=== PATIENT | male | born 1945 | race Caucasian/White ===

== ENCOUNTER 2024-09-09 00:59 | Emergency (ER) | payer MEDICARE, SELFPAY ==
[2024-09-09 01:00] VITALS: BP 121/81; BP 133/83; PULSE 80; PULSE 85; RESP 18; RESP 22; TEMP 38.2; TEMP 38.3; O2SAT 92; O2SAT 98; BMI 27.9
[2024-09-09 01:20] LABS: Microscopic, Urine URINE MICROSCOPIC (MICROSCOPIC)
--- NOTE | 2024-09-09 01:23 | ED_ITS ---
Discharge Plan Disposition Patient Disposition: Xfer Other Referrals Follow up/Referrals: Provider,Referral, [Primary Care Provider] - See instructions Clinical Impressions Clinical Impression: Acute UTI, Parkinson's disease, Pressure ulcer, Fecal impaction in rectum, Ureterolithiasis Sepsis Qualifiers: Sepsis acute organ dysfunction status: with acute organ dysfunction Severe sepsis acute organ dysfunction type: encephalopathy Severe sepsis shock status: without septic shock Coma Qualifiers: Coma depth: [place] coma 3-8 Coma timing: at arrival to emergency department Q ualified Code(s): R40.2432 - [place] coma scale score 3-8, at arrival to emergency department Stand Alone Forms Stand Alone Forms: Transfer Record - ED Print Language Print Language: Yoruba Discharge ED Provider: Henrry Kendrick General Adult HPI General Chief complaint: Weakness Stated complaint: Weakness Time Seen by Provider: 09/09/24 01:00 Mode of Arrival: EMS Source of Information: EMS Description of Symptoms (Recalled from ER Triage Doc. by RN): PT FAMILY CALLED FOR PT BEING UNRESPONSIVE. PT BEDBOUND, ABD DISTENTION NOTED WITH CONDOM CATH IN PLACE. PT RESPONSIVE TO PAIN HOWEVER DISORIENTED. HX OF PARKINSONS/PACEMAKER History of Present Illness HPI narrative: 79-year-old male with history of severe progressive Parkinson's presents for worsening mental status. He is bedbound at baseline. Over the last couple days he has become significantly less responsive. He already does not eat very well, but has not been eating hardly at all today. Family reports that usually he is able to have a full conversation, watch TV and interact. He has frequent urinary tract infections per family. He is DNR/DNI, not on hospice. Satting in the high 80s at home on room air per EMS, improved on 2 L. Patient is unable to provide any history, moans to painful stimuli. He has history of A-fib and is intermittently on Eliquis but not currently. Related Data Allergies Allergy/AdvReac Type Severity Reaction Status Date / Time No Known Allergies Allergy Verified 09/09/24 01:22 [facility] Disclaimer: The information contained in this section may have been updated after the patient was seen, as this information can be updated by other users. Medical History (Updated 09/09/24 @ 03:49 by Henrry Kendrick MD) Parkinsons disease Pacemaker Social History Smoking Status: Unknown if ever smoked alcohol intake: never current occupational status: retired Travel in the last 8 weeks: None ROS Obtained: Yes All systems reviewed & no additional complaints except as documented Physical Exam General General appearance: cachectic Comment: Moans to painful stimuli, localizes Head Head exam: atraumatic and normocephalic Eye Eye exam: Present normal appearance, PERRL and EOMI ENT ENT exam: Present normal oropharynx and normal external ear exam Neck Neck exam: Present normal inspection and full ROM Chest Chest inspection: Present normal inspection and symmetric chest wall rise; Absent tenderness Respiratory Respiratory exam: Present normal lung sounds bilaterally; Absent respiratory distress Cardiovascular Cardiovascular exam: Present regular rate and normal rhythm Abdominal Exam Abdominal exam: Present soft, distention (Suprapubic distention and tenderness) and tenderness; Absent guarding exam: Present other (Patient had a condom cath in place with a wrapping around the base of the penis patient has a small wound on the inferior aspect of the shaft of the penis at the base.) Extremities Exam Extremities exam: Present other (Pressure wounds noted); Absent edema or joint swelling Back Exam Back exam: Absent normal inspection (Significant sacral decubitus pressure wounds) or tenderness Neurological Exam Neurological exam: Present other (GCS of 8) Psychiatric Psychiatric exam: Absent normal affect Skin Skin exam: Present warm and dry Lymphatic Lymphatic Findings: no adenopathy Medical Decision Making Medical Records Medical records reviewed: Yes I reviewed the patient's medical records. Screening: Per USPSTF and CDC recommendations, given the prevalence of disease in our region, it is our hospital?s policy to screen for HIV and viral Hepatitis for all patients aged 18 and over and those with ongoing risk factors. Jj Inquiry Pt receiving controlled substance: No Jj was queried for this patient: No Vital Signs: 09/09/24 01:00 09/09/24 01:00 09/09/24 03:00 Temperature 100.9 F H 100.8 F H 100.0 F H Temperature Source Rectal Core Pulse Rate 80 67 Pulse Rate [Apical] 85 Respiratory Rate 18 22 17 Blood Pressure 121/81 119/70 Blood Pressure [Right Radial Artery] 133/83 Blood Pressure Mean [Right Radial Artery] 99 Blood Pressure Source Blood Pressure Position 02 Sat by Pulse Oximetry 98 92 L 98 Oxygen Delivery Method Nasal Cannula Nasal Cannula Nasal Cannula Oxygen Flow Rate (LPM) 2 2 09/09/24 03:30 09/09/24 05:03 Temperature 99.7 F H 99.7 F H Temperature Source Core Pulse Rate 87 89 Pulse Rate [Apical] Respiratory Rate 17 17 Blood Pressure 135/96 H 135/96 H Blood Pressure [Right Radial Artery] Blood Pressure Mean [Right Radial Artery] Blood Pressure Source Automatic Cuff Blood Pressure Position Supine 02 Sat by Pulse Oximetry 96 Oxygen Delivery Method Nasal Cannula Nasal Cannula Oxygen Flow Rate (LPM) 2 2 Lab Data Lab results reviewed: Yes I reviewed the patient's lab results. Lab Results 09/09/24 01:05: WBC 13.7 H, RBC 5.51, Hgb 16.1, Hct 50.2, MCV 91.1, MCH 29.2, MCHC 32.1, RDW 15.8, Plt Count 313, MPV 11.7 H, Neut % (Auto) 87.3 H, Lymph % (Auto) 5.4 L, Trinity % (Auto) 6.2, Eos % (Auto) 0.3, Baso % (Auto) 0.3, Neut # (Auto) 11.9 H, Lymph # (Auto) 0.7, Trinity # (Auto) 0.9, Eos # (Auto) 0.0, Baso # (Auto) 0.0, Sodium 141, Potassium 6.3 H*, Chloride 108 H, Carbon Dioxide 19 L, A nion Gap 20.3 H, BUN 55 H, Creatinine 1.60 H, Estimated Creat Clear 50, E stimated GFR 42 L, Est GFR ( Amer) 51 L, Glucose 176 H, Calcium 9.5, Phosphorus 4.0, Magnesium 2.5 H, Total Bilirubin 1.3, AST 74 H, ALT 26, Alkaline Phosphatase 153 H, Total Creatine Kinase 33 L, Total Protein 9.8 H, Albumin 4.2, Globulin 5.6 H, Albumin/Globulin Ratio 0.8 L, TSH 2.81, Thyroxine (T4) 9.6, Acetone Level None detected 09/09/24 01:06: VBG pH 7.40, VBG pCO2 34.0 L, VBG pO2 57.9 H, VBG HCO3 20.8 L, V BG Total CO2 21.8 L, VBG O2 Saturation 90.8 H, VBG Base Excess -4.0 L, VBG Lactic Acid 4.2 H 09/09/24 01:08: Urine Color Dark yellow, Urine Appearance Cloudy, Urine pH >= 9.0 H, Ur Specific Carney <= 1.005, Urine Protein 3+ A, Urine Glucose (UA) Negative, Urine Ketones Negative, Urine Blood 3+ A, Urine Nitrate Positive A, Urine Bilirubin Negative, Urine Urobilinogen 0.2, Ur Leukocyte Esterase 2+ A, Urine RBC 20-50, Urine WBC 5-10, Ur Squamous Epith Cells None, Calcium Oxalate Crystal Trace, Triple Phos Crystals 2+, Urine Bacteria 2+, Urine Mucus 2+, Urine Opiates Screen Negative, Urine Methadone Screen Negative, Ur Barbituates Screen Negative, Ur Phencyclidine Scrn Negative, Ur Amphetamines Screen Negative, U Benzodiazepines Scrn Negative, Urine Cocaine Screen Negative, U Marijuana (THC) Screen Negative 09/09/24 01:30: SARS-CoV-2 (PCR) Not detected, Influenza A Untype (PCR) Not detected, Influenza Type B (PCR) Not detected 09/09/24 01:48: Sodium 142, Potassium 5.3 H, Chloride 107, Carbon Dioxide 21 L, Anion Gap 19.3 H, BUN 53 H, Creatinine 1.70 H, Estimated Creat Clear 47, E stimated GFR 39 L, Est GFR ( Amer) 47 L, Glucose 170 H, Calcium 9.2, M agnesium 2.5 H, Total Bilirubin 1.0, AST 52 D, ALT 22, Alkaline Phosphatase 155 H, Total Protein 8.9 H, Albumin 3.7 D, Globulin 5.2 H, Albumin/Globulin Ratio 0.7 L 09/09/24 01:05 09/09/24 01:48 Orders (Tests/Meds): ED MEDICATIONS Discontinued Medications Generic Name Dose Route Start Last Admin Trade Name Freq PRN Reason Stop Dose Admin Sodium Chloride 1,000 mls @ 999 mls/hr 09/09/24 01:15 09/09/24 01:25 Sod Chlor 0.9% 1000ml Bag IV 09/09/24 02:15 999 mls/hr .Q1H1M JUAN MANUEL Administration Piperacillin Sod/Tazobactam 100 mls @ 200 mls/hr 09/09/24 01:14 09/09/24 01:29 Sod 4.5 gm/ Sodium Chloride IV 09/09/24 01:43 Not Given ONCE ONE Sodium Chloride 1,000 mls @ 999 mls/hr 09/09/24 01:30 09/09/24 01:30 Sod Chlor 0.9% 1000ml Bag IV 09/09/24 02:30 999 mls/hr .Q1H1M JUAN MANUEL Administration Vancomycin/PEG/NADA/Lysine/Water 1.75 gm in 350 mls @ 175 mls/hr 09/09/24 01:30 09/09/24 01:55 Vancomycin 1.75gm/350ml (Peg) Premix IV 09/09/24 03:29 175 mls/hr ONCE ONE Administration Piperacillin Sod/Tazobactam 100 mls @ 200 mls/hr 09/09/24 01:28 09/09/24 01:29 Sod 4.5 gm/ Sodium Chloride IV 09/09/24 01:57 200 mls/hr ONCE ONE Administration Iopamidol 70 ml 09/09/24 02:42 09/09/24 02:43 Iopamidol-370 (76%);100ml Bottle IV 09/09/24 02:43 70 ml ONCE ONE Administration Miscellaneous 1 each 09/09/24 01:15 09/09/24 01:38 Vancomycin Consult Request NOTAPPLIC 10/09/24 01:14 1 each CONSULT PHARMACY JUAN MANUEL Administration Sodium Chloride 40 ml 09/09/24 02:42 09/09/24 02:43 0.9 % Sodium Chloride 50 Ml Vial IV 09/09/24 02:43 40 ml ONCE ONE Administration Sodium Chloride 10 ml 09/09/24 02:42 09/09/24 02:43 Sodium Chloride 0.9% 10ml Syr (Rad Only) IV 10/09/24 02:41 10 ml NEEDED PRN Administration Maintain IV Site ORDERS Category Date Time Status CT abdomen pelvis w con Stat Cat Scan 09/09/24 01:[address] angio chest PE protocol Stat Cat Scan 09/09/24 02:[address] head/brain wo con Stat Cat Scan 09/09/24 02:00 Completed Acetone, Serum (Rapid) Stat Lab 09/09/24 01:05 Completed CBC w/Auto Diff [Complete Blood Count Auto Diff] Stat Lab 09/09/24 01:05 Completed CK [Creatine Kinase] Stat Lab 09/09/24 01:05 Completed CMP [Comprehensive Metabolic Panel] Stat Lab 09/09/24 01:05 Completed CMP [Comprehensive Metabolic Panel] Stat Lab 09/09/24 01:48 Completed Lactate Venous Stat Lab 09/09/24 01:05 Ordered MAG [Magnesium] Stat Lab 09/09/24 01:48 Completed Magnesium Stat Lab 09/09/24 01:05 Completed Phosphorous Stat Lab 09/09/24 01:05 Completed Rapid PCR Covid and Flu A/B Stat Lab 09/09/24 01:30 Completed T4 (Thyroxine) Stat Lab 09/09/24 01:05 Completed TSH [Thyroid Stimulating Hormone] Stat Lab 09/09/24 01:05 Completed UA [Urinalysis and Microscopic] Stat Lab 09/09/24 01:08 Completed UDS [Drug Screen,Urine] Stat Lab 09/09/24 01:08 Completed Blood Culture Stat Micro 09/09/24 01:05 Received Urine Culture Stat Micro 09/09/24 01:08 Received VBG [Venous Blood Gas] Stat RT 09/09/24 01:06 Completed Tissue Perfus/Sepsis Re-Eval Sepsis Re-Evaluation Performed: Yes Date Performed: 09/09/24 Time Performed: 02:30 Medical Decision Narrative: 79-year-old male with history of severe Parkinson's, bedbound, worsening debility at home presents with worsening mental status over the last couple of days, decreased p.o. intake. History was obtained via interactive discussion with EMS, patient's family. On arrival, patient is febrile, mildly hypertensive, satting in the low 90s on 2 L nasal cannula (not usually on nasal cannula). Full physical exam performed and significant for altered mental status with GCS of 8, moans to and localizes painful stimuli. Suprapubic abdomen is distended and tender, patient has multiple pressure wounds. Blood glucose higher than 100 per EMS. Intubation upon arrival was considered but patient is DNR/DNI per family. Differential includes but is not limited to sepsis, UTI, pneumonia, intracranial pathology, urinary tract obstruction, electrolyte derangement, renal failure. Patient was given 2 L IV fluid bolus, vancomycin, Zosyn for sepsis for symptomatic management and correction of underlying abnormalities. Patient did not receive full sepsis bolus due to concern for possibility of volume overload. Workup initiated including CBC CMP mag Phos TSH T4 CK UA VBG troponin EKG CT head CT PE CT abdomen pelvis with IV contrast blood cultures urine cultures. Pereira was placed with over 1000 mL out. On re-evaluation, patient remains hemodynamically stable. Laboratory workup independently interpreted by me and significant for white count 13.7 with neutrophilic shift, elevated lactate at 4, potassium 5.3 (initial potassium was higher than this, but it was rechecked due to concern for hemolysis), mildly elevated anion gap, creatinine 1.6 with unknown baseline. Urinalysis is consistent with UTI. Imaging independently interpreted by me and significant for CT head with ex vacuo dilatation and ventriculomegaly, no obvious bleed. CT chest shows no large PE or significant consolidation. CT abdomen shows dilated gallbladder with stones without pericholecystic fluid. More concerning is significant bilateral hydronephrosis and hydroureter with a large 10 x 8 mm stone in the right UPJ as well as a smaller more distal stone. Patient also appears to have stones within the bladder. Patient also has a massive rectal stool ball.. See radiology read for full review of final results. EKG independently interpreted by me and significant for sinus rhythm, ventricular rate of 98, right bundle branch block noted, T wave inversions in V2 and V3, no acute ST elevation. Interpreted at 133. Given patient history, exam and workup, patient's presentation most likely represents sepsis and altered mental status secondary to UTI with obstructing ureteral stones. Patient's large rectal stool ball is likely also due to his urinary obstruction, we will attempt disimpaction and enema prior to transfer.. Interactive discussion was had with patient's family regarding his presentation, workup, prognosis. They report they would like to pursue urologic intervention. Interactive discussion was had with the [facility] who accepted the patient in transfer to [facility]. Accepting is Dr. Hughes. Procedures Risk/Benefits of Procedure(s) Were Explained: Yes Critical Care Critical Care Time Critical Care Time: Yes Attestation: On 09/09/24, the high probability of a clinically significant, sudden or life threatening deterioration of the following system(s) required my full and direct attention, intervention and personal management. The time I documented below is in addition to time spent performing reported procedures but includes the following listed in this critical care notation. Total Time Total Critical Care Time: 65
[2024-09-09 01:24] LABS: Bilirubin,Urine Negative (Negative); Blood, Urine 3+ (Negative); Glucose,Urine (UA) Negative (Negative); Ketones,Urine Negative (Negative); Leukocyte Esterase,Urine 2+ (Negative); Nitrate,Urine POSITIVE (Negative); Protein,Urine 3+ (Negative); Specific Gravity, Urine <= 1.005 (1.005-1.030); Urobilinogen,Urine 0.2 EU/dl (0.2)
[2024-09-09] MEDS: 0.9 % SODIUM CHLORIDE 1000ML 1,000 ML 999 ML IV ×2 (01:25→01:30)
[2024-09-09 01:26] LABS: Acetone, Serum (Rapid) None Detected (None Detect)
[2024-09-09 01:27] LABS: Appearance,Urine Cloudy (Clear); Color,Urine Dark Yellow (Yellow); PH,Urine >= 9.0 (5.0-8.5)
[2024-09-09 01:28] LABS: Basophils % 0.3 % (0.1-2.0); Eosinophils % 0.3 % (0.1-12.0); Hematocrit 50.2 % (42.0-52.0); Hemoglobin 16.1 g/dL (14.1-18.0); Lymphocytes # 0.7 K/mm3 (0.7-4.5); Lymphocytes % 5.4 % (10-50); Mean Corpuscular HGB Conc 32.1 g/dL (31.8-35.4); Mean Corpuscular Hemoglobin 29.2 pg (27.0-31.2); Mean Corpuscular Volume 91.1 fl (80-94); Mean Platelet Volume 11.7 fl (7.4-10.4); Monocytes # 0.9 K/mm3 (0.1-1.0); Monocytes % 6.2 % (1.7-9.3); Neutrophils # 11.9 K/mm3 (1.8-7.8); Neutrophils % 87.3 % (37.0-80.0); Nucleated Red Blood Cells # 0 10^3/uL; Nucleated Red Blood Cells % 0 %; Platelet Count 313 K/mm3 (142-424); Red Blood Count 5.51 M/mm3 (4.60-6.20); Red Cell Distribution Width 15.8 % (11.5-17.5); Red Cell Distribution Width-SD 52.8 fL; White Blood Count 13.7 K/mm3 (4.8-10.8)
[2024-09-09 01:29] LABS: Albumin Level 4.2 g/dl (3.5-5.0); Chloride 108 mmol/L (98-107)
[2024-09-09] MEDS: PIPERACILLIN/TAZO 4.5 GM in 0.9 % SODIUM CHLORIDE 100 ML IV (01:29)
[2024-09-09 01:30] LABS: Sodium 141 mmol/L (136-145)
--- NOTE | 2024-09-09 01:30 | ECG_ITS ---
APPROVED REPORT Exam: Resting ECG HR:98 bpm ECG Measurements Heart Rate 98 AXES NC 207 P 59 QRSd 138 QRS -32 QT 384 T 11 QTc 439 Conclusion SINUS RHYTHM INDETERMINATE AXIS RIGHT BUNDLE BRANCH BLOCK [120+ ms QRS DURATION, UPRIGHT V1, 40+ ms S IN I/aVL/V4/V5/V6] INFERIOR MYOCARDIAL INFARCTION , PROBABLY OLD [40+ ms Q WAVE AND/OR ST/T ABNORMALITY IN II/aVF] ABNORMAL ECG UNCONFIRMED REPORT Electronically signed by : WENCESLAO VALLE, 09/09/2024 06:58:08
[2024-09-09 01:32] LABS: Alanine Aminotransferase 26 U/L (12-78); Aspartate Amino Transferase 74 U/L (17-59); Blood Urea Nitrogen 55 mg/dl (9-20); Carbon Dioxide 19 mmol/L (22.0-30.0); Creatinine Clearance Estimated 50 mL/min (50-200); Estimated Glomerular Filt Rate 42 ml/min (>60); GFR (African American) 51 ML/MIN (>60); Magnesium 2.5 mg/dl (1.6-2.3)
[2024-09-09 01:33] LABS: Alkaline Phosphatase 153 U/L (38-126); Bilirubin,Total 1.3 mg/dl (0.2-1.3); Calcium 9.5 mg/dl (8.4-10.2); Creatine Kinase 33 U/L (55-170); Glucose 176 mg/dl (74-100); Total Protein,Serum 9.8 g/dl (6.3-8.2)
[2024-09-09 01:34] LABS: VBG HCO3 20.8 mmol/L (23-30); VBG Oxygen Saturation 90.8 % (50-70); VBG PO2 57.9 mmol/L (28-40); VBG Total CO2 21.8 mmol/L (23-27)
[2024-09-09 01:34] LABS: Coronavirus 19, PCR Not Detected (NotDetected); Influenza A, PCR Not Detected (NotDetected); Influenza B, PCR Not Detected (NotDetected)
[2024-09-09 01:35] LABS: Anion Gap 20.3 mEq/L (5-15); Potassium 6.3 mmoL/L (3.5-5.1)
[2024-09-09 01:36] LABS: Lactate Venous 4.2 mmol/L (0.4-2.0)
--- NOTE | 2024-09-09 01:36 | PC.NURSE ---
Critical result received from Ana in lab of patient K+ 6.3. aware. Redrawing labs at this time for confirmation.
[2024-09-09 01:38] LABS: Barbiturates Screen,Urine Negative ng/ml (<200); Benzodiazepines Screen,Urine Negative ng/ml (<200)
[2024-09-09] MEDS: VANCOMYCIN CONSULT REQUEST 1 EACH NOTAPPLIC (01:38)
[2024-09-09 01:39] LABS: Amphetamine/Metha Screen,Urine Negative ng/ml (<1000)
[2024-09-09 01:40] LABS: Cannabinoid Screen,Urine Negative ng/ml (<50); Methadone Screen,Urine Negative ng/ml (<300)
[2024-09-09 01:41] LABS: Cocaine Screen,Urine Negative ng/ml (<300)
[2024-09-09 01:42] LABS: Opiate Screen,Urine Negative ng/ml (<300); Phencyclidine Screen,Urine Negative ng/ml (<25)
[2024-09-09 01:47] LABS: Bacteria,Urine 2+ /lpf; Mucus,Urine 2+ /lpf; RBC,Urine 20-50 #/hpf (0-3)
[2024-09-09 01:48] LABS: Calcium Oxalate Crystals,Urine Trace /lpf; Triple Phosphate Crystal,Urine 2+ /lpf
--- NOTE | 2024-09-09 01:52 | CT_ITS ---
PROCEDURE INFORMATION: Exam: CT Abdomen And Pelvis With Contrast Exam date and time: 09/09/2024 2:33 AM Age: 79 years old Clinical indication: Other: Sepsis, UTI, AMS TECHNIQUE: Imaging protocol: Computed tomography of the abdomen and pelvis with contrast. 3D rendering (Not supervised by radiologist): MIP and/or 3D reconstructed images were created by the technologist. Radiation optimization: All CT scans at this facility use at least one of these dose optimization techniques: automated exposure control; mA and/or kV adjustment per patient size (includes targeted exams where dose is matched to clinical indication); or iterative reconstruction. Contrast material: ISOVUE; Contrast volume: 70 ml; Contrast route: IV; COMPARISON: CT ANGIO CHEST PE PROTOCOL 09/09/2024 2:33 AM FINDINGS: Liver: Normal. No mass. Gallbladder and biliary ducts: Cholelithiasis is present without findings of cholecystitis. No gallbladder wall thickening or pericholecystic fluid collection. There is no biliary ductal dilation. Pancreas: Normal. No ductal dilation. Spleen: Normal. No splenomegaly. Adrenal glands: Normal. No mass. Kidneys and ureters: There are bilateral intrarenal calculi noted. There are 2 proximal right ureteral calculi measuring approximately 7-8 mm in size. These do not appear to be causing obstruction. There is bilateral hydroureteronephrosis. The right ureter is dilated distal to the proximal calculi. The findings are likely related to urinary retention. There is enhancement of the wall of both renal pelves and ureters raising the suspicion for ureteritis and pyelitis. Stomach and bowel: There is significant fecal content within the rectum with rectal diameter measuring 10.5 cm. There is mild perirectal inflammation. No bowel obstruction. No mucosal thickening. There is a moderate diverticulum of the 2nd portion of duodenum. Appendix: No evidence of appendicitis. Intraperitoneal space: Unremarkable. No free air. No significant fluid collection. Vasculature: There is [id number] calcific atherosclerotic disease without aneurysm or dissection. Lymph nodes: Unremarkable. No enlarged lymph nodes. Urinary bladder: A Pereira catheter is present within the bladder. The bladder remains moderately distended. There is bladder wall thickening noted. Reproductive: Unremarkable as visualized. Bones/joints: There is a mild scoliosis lumbar spine convex right. Moderate to severe degenerative changes are noted. There is posterior decompression and hardware fusion from L3 through L5. The hardware is intact. No acute fractures evident. Soft tissues: Unremarkable. IMPRESSION: 1. A Pereira catheter is present within the urinary bladder with residual moderate distension noted. There is diffuse bladder wall thickening. The bladder wall thickening may be secondary to chronic bladder outlet obstruction or cystitis. 2. Mild bilateral hydroureteronephrosis likely secondary to urinary retention. There are 2 proximal right ureteral calculi present measuring 7-8 mm in size which do not appear to be causing obstruction. Other bilateral intrarenal calculi are noted. Findings raise the suspicion for bilateral pyelitis and ureteritis. 3. Significant fecal content within the rectum with rectal diameter measuring up to 10.5 cm. Mild perirectal inflammation is noted. No bowel obstruction. 4. Other nonacute findings as noted.
[2024-09-09] MEDS: VANCOMYCIN/WATER FOR INJ (PEG) 1.75 GM/350 ML PIGGYBACK IV (01:55)
[2024-09-09 01:56] LABS: T4 (Thyroxine) 9.6 ug/dl (5.53-11.0)
--- NOTE | 2024-09-09 01:58 | PC.NURSE ---
PT FAMILY LET BACK FROM LOBBY PER PROVIDER REQUEST. CODE STATUS DISCUSSED, DNR/DNI FORM SIGNED AND PLACED IN CHART. PT WAS ALSO PREVIOUSLY PROVIDED WITH [facility] S/P BM DURING INITIAL INTAKE/TRIAGE
--- NOTE | 2024-09-09 02:00 | CT_ITS ---
PROCEDURE INFORMATION: Exam: CT Head Without Contrast Exam date and time: 09/09/2024 2:07 AM Age: 79 years old Clinical indication: Altered mental status/memory loss; Additional info: Sepsis, UTI, AMS TECHNIQUE: Imaging protocol: Computed tomography of the head without contrast. Radiation optimization: All CT scans at this facility use at least one of these dose optimization techniques: automated exposure control; mA and/or kV adjustment per patient size (includes targeted exams where dose is matched to clinical indication); or iterative reconstruction. COMPARISON: None available. FINDINGS: Brain: There is diffuse enlargement CSF containing spaces consistent with global parenchymal volume loss. No acute intracranial hemorrhage. No evidence of large acute territorial infarct or significant cerebral edema. No midline shift or significant mass effect. Patchy hypoattenuation of the centrum semiovale periventricular regions likely represent microangiopathic disease. Cerebral ventricles: Asymmetric enlargement of the right lateral ventricle in comparison to the left unchanged. Paranasal sinuses: The paranasal sinuses are clear. Mastoid air cells: The mastoid air cells are clear. Orbital cavities: The orbits are unremarkable. Bones: No acute fracture. Soft tissues: The superficial soft tissues are normal. IMPRESSION: 1. No acute intracranial hemorrhage or large territorial infarct recommend correlation with history/physical exam and if clinical concern persists consider further evaluation with MRI. 2. Other findings as above.
--- NOTE | 2024-09-09 02:00 | CT_ITS ---
PROCEDURE INFORMATION: Exam: CTA Chest With Contrast Exam date and time: 09/09/2024 2:33 AM Age: 79 years old Clinical indication: Other: Sepsis, UTI, AMS, hypoxia TECHNIQUE: Imaging protocol: Computed tomographic angiography of the chest with contrast. Exam focused on the arteries. 3D rendering (Not supervised by radiologist): MIP and/or 3D reconstructed images were created by the technologist. Radiation optimization: All CT scans at this facility use at least one of these dose optimization techniques: automated exposure control; mA and/or kV adjustment per patient size (includes targeted exams where dose is matched to clinical indication); or iterative reconstruction. Contrast material: IOSUVE 370; Contrast volume: 70 ml; Contrast route: INTRAVENOUS (IV); COMPARISON: CT ANGIO CHEST PE PROTOCOL 09/09/2024 2:33 AM FINDINGS: Tubes, catheters and devices: A pacing device enters via the left subclavian vein. Pulmonary arteries: Normal. No pulmonary emboli. Great vessels off aortic arch: There is a common origin of the brachiocephalic and left common carotid arteries. Aorta: Unremarkable. No aortic aneurysm. No aortic dissection. Lungs: There is minimal dependent atelectasis. No consolidation. No mass. A small right lower lobe calcified granuloma is noted. Pleural spaces: Unremarkable. No pneumothorax. No pleural effusion. Heart: Unremarkable. No cardiomegaly. No pericardial effusion. Lymph nodes: Unremarkable. No enlarged lymph nodes. Bones/joints: There are moderate degenerative changes of the spine. No acute fracture. Soft tissues: Unremarkable. IMPRESSION: No acute findings.
[2024-09-09 02:01] LABS: Albumin Level 3.7 g/dl (3.5-5.0); Chloride 107 mmol/L (98-107); Potassium 5.3 mmoL/L (3.5-5.1); Sodium 142 mmol/L (136-145)
[2024-09-09 02:04] LABS: Alanine Aminotransferase 22 U/L (12-78); Albumin/Globulin Ratio 0.7 (1.1-1.8); Alkaline Phosphatase 155 U/L (38-126); Anion Gap 19.3 mEq/L (5-15); Aspartate Amino Transferase 52 U/L (17-59); Blood Urea Nitrogen 53 mg/dl (9-20); Calcium 9.2 mg/dl (8.4-10.2); Carbon Dioxide 21 mmol/L (22.0-30.0); Creatinine Clearance Estimated 47 mL/min (50-200); Estimated Glomerular Filt Rate 39 ml/min (>60); GFR (African American) 47 ML/MIN (>60); Globulin 5.2 g/dL (1.3-3.2); Glucose 170 mg/dl (74-100); Magnesium 2.5 mg/dl (1.6-2.3); Total Protein,Serum 8.9 g/dl (6.3-8.2)
[2024-09-09 02:04] LABS: Albumin/Globulin Ratio 0.8 (1.1-1.8); Globulin 5.6 g/dL (1.3-3.2)
[2024-09-09 02:09] LABS: Thyroid Stimulating Hormone 2.81 uIU/mL (0.465-4.68)
--- NOTE | 2024-09-09 02:30 | PC.NURSE ---
PT BLADDER SCAN =1500ML, PROVIDER MADE AWARE, ROYAL CATH ORDERED
[2024-09-09] MEDS: 0.9 % SODIUM CHLORIDE 50 ML VIAL 40 ML IV (02:43)
[2024-09-09] MEDS: IOPAMIDOL-370 (76%);100ML BOTTLE 70 ML IV (02:43)
[2024-09-09] MEDS: SODIUM CHLORIDE 0.9% 10ML SYR (RAD ONLY) 10 ML IV (02:43)
--- NOTE | 2024-09-09 02:55 | PC.NURSE ---
pt back to room from CT scan. 1450ml drained from laurent bag. urine is milky brown with sediment noted.
[2024-09-09 03:00] VITALS: BP 119/70; PULSE 67; RESP 17; TEMP 37.8; O2SAT 98
--- NOTE | 2024-09-09 03:07 | PC.NURSE ---
Spoke with [facility] transfer center, They will be giving us a call back as soon as their provider is ready. radiology has also been requested to power share his imaging.
[2024-09-09 03:30] VITALS: BP 135/96; PULSE 87; RESP 17; TEMP 37.6; O2SAT 96
--- NOTE | 2024-09-09 04:01 | PC.NURSE ---
Report called to MARGARITO Barahona at [facility]
[2024-09-09 05:03] VITALS: BP 135/96; PULSE 89; RESP 17; TEMP 37.6; O2SAT 98
[2024-09-09 05:36] LABS: Reflex Lactic Add Lactic Reflex
--- NOTE | 2024-09-14 09:38 | PC.NURSE ---
/reviewed urine cx results from 09/12/[address] Pratt. Pt is on appropriate ABX.
--- NOTE | 2024-09-14 11:11 | PC.NURSE ---
Attempted to forward urine cath results to [facility] however they report the pt is
== END 2024-09-09 04:45 | disposition other institution (70) ==
PROVIDERS: Emergency Provider Emergency Medicine
DX: A41.89 Other specified sepsis (principal); R65.20 Severe sepsis without septic shock; R40.2432 Glasgow coma scale score 3-8, at arrival to emergency department; N13.0 Hydronephrosis with ureteropelvic junction obstruction; N20.1 Calculus of ureter; N39.0 Urinary tract infection, site not specified; K56.41 Fecal impaction; L89.159 Pressure ulcer of sacral region, unspecified stage; G93.40 Encephalopathy, unspecified; Z66 Do not resuscitate
CPT/HCPCS: 51702; 70450; 71275; 74177; 80053; 80307; 81001; 82009; 82550; 82803; 83735; 84100; 84436; 84443; 85025; 87040; 87086; 87088; 87186; 87636; 93005; 96365; 96366; 96367; 99291; J2543; J3372; J7030; Q9967